=== PATIENT | female | born 1955 | race Native Hawaiian/Other Pacific Islander ===

== ENCOUNTER 2017-08-31 08:42 | Outpatient (CLI) | payer BC, OTHER ==
[~2017-08-31 08:42] MED LIST: AMBIEN5 MG PO; CELEBREX200 MG PO; CYCL10TA35 PO; DIAZ5TAB20 PO; GABA300C2 PO; HYDR10TA47 PO
== END 2017-08-31 19:15 | disposition home or self-care (01) ==
LOC: CT 08:42
DX: R10.11 Right upper quadrant pain (principal)
CPT/HCPCS: 36415; 82565; 84520; Q9963